=== PATIENT | female | born 1960 | race Two or more races ===

== ENCOUNTER 2020-08-31 10:06 | Inpatient (IN) | payer MEDICAID, OTHER ==
[~2020-08-31] VITALS: Ht 160 cm; Wt 84.0 kg
[2020-08-31] MEDS ORDERED: cloNIDine HCL 0.1 MG TAB PO ONE (10:15)
[2020-08-31 10:42] LABS: Basophils # (auto) 0.1 10 ^3/uL (0-0.2); Basophils % (auto) 0.9 % (0.0-2.0); Eosinophils # (auto) 0.1 10 ^3/uL (0-0.8); Eosinophils % (auto) 1.3 % (0.0-7.0); Hematocrit 38.8 % (36.0-46.0); Hemoglobin 13.2 g/dL (12.2-16.2); Lymphocytes # (auto) 2.1 10 ^3/uL (0.4-5.4); Lymphocytes % (auto) 28.3 % (10.0-50.0); Mean Corpuscular Hemoglobin 30.2 pg (28.0-32.0); Mean Corpuscular Hgb Conc. 34.1 g/dL (32.0-36.0); Mean Corpuscular Volume 88.5 fL (80.0-100.0); Monocytes # (auto) 0.7 10 ^3/uL (0-1.3); Monocytes % (auto) 9.4 % (0.0-12.0); Neutrophils # (auto) 4.4 10 ^3/uL (1.6-8.6); Neutrophils % (auto) 60.1 % (37.0-80.0); Nucleated Red Blood Cells % 0.1 %; Platelet Count (auto) 314 10^3/uL (140-450); Red Blood Cells 4.39 10^6/uL (4.0-5.20); Red Cell Distribution Width 13.8 % (11.8-14.3); White Blood Cell 7.3 10^3/uL (4.4-10.8)
[2020-08-31 10:43] LABS: Urine WBC None Seen /hpf (0 - 5)
[2020-08-31 11:02] LABS: Chloride 101 mmol/L (98-107); Potassium 3.2 mmol/L (3.5-5.1); Sodium 137 mmol/L (136-145)
[2020-08-31 11:08] LABS: Urine Bacteria NONE SEEN /hpf (None Seen); Urine Blood Negative /uL (Negative); Urine Hyaline Cast FEW /lpf (0 - 2); Urine Specific Gravity 1.005 (1.001-1.035)
[2020-08-31 11:12] LABS: Alanine Aminotransferase 23 U/L (13-56); Albumin 3.6 g/dL (3.4-5.0); Alkaline Phosphatase 65 U/L (45-117); Amylase 26 U/L (25-115); Anion Gap 6 (5-15); Aspartate Aminotransferase 21 U/L (15-37); BUN/Creatinine Ratio 11.5; Bilirubin, Total 0.5 mg/dL (0.2-1.0); Blood Urea Nitrogen 9 mg/dL (7-18); Calcium 8.8 mg/dL (8.5-10.1); Carbon Dioxide 30 mmol/L (21-32); GFR African American 98 mL/min; GFR Non-African American 81 mL/min; Glucose 153 mg/dL (74-106); Lipase 69 U/L (73-393); Magnesium 2.4 mg/dL (1.6-2.6); Total Protein 7.8 g/dL (6.4-8.2)
[2020-08-31] MEDS ORDERED: SODIUM CHLORIDE 0.9% 1,000 ML IV ONE (11:30)
[2020-08-31] MEDS ORDERED: GASTROGRAFIN 120 ML SOL ONE (12:27)
[2020-08-31] MEDS ORDERED: NITROGLYCERIN 0.4 MG SL TAB SL PRN (14:15)
[2020-08-31] MEDS: D5W/SOD CHL 0.9%/KCL 40MEQ 1,000 ML IV SCH ×2 (14:15→22:42)
[2020-08-31] MEDS ORDERED: MORPHINE SULF INJ 2 MG/ML SYRINGE 1ML IV PRN ×3 (14:15→16:00)
[2020-08-31] MEDS: POTASSIUM CHL 20MEQ/100ML 100 ML IV SCH ×2 (14:15→17:07)
[2020-08-31] MEDS ORDERED: DEXTROSE (50%) 50ML SYRG IV PRN (16:00)
[2020-08-31] MEDS ORDERED: PROMETHAZINE HCL 25 MG/ML 1ML IV PRN (16:00)
[2020-08-31] MEDS ORDERED: cefTRIAXone 1GM/50ML D5W 50 ML IV ONE (16:00)
[2020-08-31] MEDS: FAMOTIDINE (10MG/ML) 2ML VL IV SCH (16:00)
[2020-08-31] MEDS: SODIUM CHLORIDE 0.9% 1,000 ML IV SCH (16:28)
[2020-08-31 16:59] LABS: Amylase 26 U/L (25-115); Lipase 76 U/L (73-393)
[2020-08-31] MEDS: InsuLIN REG 1unit/0.01ml Soln (100units/ml) SC SCH (18:00)
[2020-08-31] MEDS: ACCU-CHEK COMFORT CURVE STRIP VI SCH (18:45)
[2020-08-31] MEDS: metroNIDAZOLE 500MG/100ML 100 ML IV SCH (21:30)
[2020-09-01] MEDS: ACCU-CHEK COMFORT CURVE STRIP VI SCH ×5 (00:28→23:10)
[2020-09-01] MEDS: InsuLIN REG 1unit/0.01ml Soln (100units/ml) SC SCH ×5 (00:30→23:11)
[2020-09-01] MEDS: SODIUM CHLORIDE 0.9% 1,000 ML IV SCH ×3 (02:21→23:10)
[2020-09-01] MEDS: FAMOTIDINE (10MG/ML) 2ML VL IV SCH ×2 (04:44→16:00)
[2020-09-01 05:32] VITALS: BP 141/94
[2020-09-01] MEDS: metroNIDAZOLE 500MG/100ML 100 ML IV SCH ×3 (06:18→23:10)
[2020-09-01] MEDS: D5W/SOD CHL 0.9%/KCL 40MEQ 1,000 ML IV SCH ×3 (06:29→23:35)
[2020-09-01] MEDS ORDERED: METF-370 PO (06:48)
[2020-09-01] MEDS ORDERED: PIO30T PO (06:51)
[2020-09-01] MEDS ORDERED: LISI30TA4 PO (06:51)
[2020-09-01] MEDS ORDERED: GLIP5TAB12 PO (06:51)
[2020-09-01 08:00] VITALS: BP 144/69
[2020-09-01] MEDS: cefTRIAXone 1GM/50ML D5W 50 ML IV SCH (09:14)
[2020-09-01 12:00] VITALS: BP 140/73
[2020-09-01 16:00] VITALS: BP 158/80
[2020-09-02 05:00] VITALS: BP 139/90
[2020-09-02] MEDS: FAMOTIDINE (10MG/ML) 2ML VL IV SCH ×2 (05:52→16:21)
[2020-09-02] MEDS: ACCU-CHEK COMFORT CURVE STRIP VI SCH ×4 (05:53→23:14)
[2020-09-02] MEDS: metroNIDAZOLE 500MG/100ML 100 ML IV SCH ×3 (05:53→23:14)
[2020-09-02] MEDS: InsuLIN REG 1unit/0.01ml Soln (100units/ml) SC SCH ×4 (05:54→23:14)
[2020-09-02 09:00] VITALS: BP 157/82
[2020-09-02] MEDS: cefTRIAXone 1GM/50ML D5W 50 ML IV SCH (10:24)
[2020-09-02] MEDS: SODIUM CHLORIDE 0.9% 1,000 ML IV SCH ×2 (12:09→18:00)
[2020-09-02] MEDS: D5W/SOD CHL 0.9%/KCL 40MEQ 1,000 ML IV SCH ×2 (12:09→23:15)
[2020-09-02 13:00] VITALS: BP 164/84
[2020-09-02 17:00] VITALS: BP 153/93
[2020-09-02 22:00] VITALS: BP 151/77
[2020-09-03] MEDS: D5W/SOD CHL 0.9%/KCL 40MEQ 1,000 ML IV SCH ×3 (00:35→17:15)
[2020-09-03 05:00] VITALS: BP 154/88
[2020-09-03] MEDS: SODIUM CHLORIDE 0.9% 1,000 ML IV SCH ×2 (06:01→14:00)
[2020-09-03] MEDS: FAMOTIDINE (10MG/ML) 2ML VL IV SCH ×2 (06:01→16:00)
[2020-09-03] MEDS: ACCU-CHEK COMFORT CURVE STRIP VI SCH ×2 (06:02→12:10)
[2020-09-03] MEDS: metroNIDAZOLE 500MG/100ML 100 ML IV SCH ×2 (06:02→14:00)
[2020-09-03] MEDS: InsuLIN REG 1unit/0.01ml Soln (100units/ml) SC SCH ×2 (06:04→12:14)
[2020-09-03 09:00] VITALS: BP 154/85
[2020-09-03] MEDS: cefTRIAXone 1GM/50ML D5W 50 ML IV SCH (09:30)
[2020-09-03 13:00] VITALS: BP 161/90
== END 2020-09-03 17:10 | disposition home or self-care (01) | DRG 247 ==
LOC: ER 10:06 → TELE 14:06 → TELE-WESTW 09-01 04:00 → TELE-EAST 09-01 17:56
PROVIDERS: ADMIT Internal Medicine; ATTEND Family Medicine
DX: K56.600 Partial intestinal obstruction, unspecified as to cause (principal); U07.1 COVID-19; E78.5 Hyperlipidemia, unspecified; I10 Essential (primary) hypertension; E66.9 Obesity, unspecified; Z68.29 Body mass index [BMI] 29.0-29.9, adult; E87.6 Hypokalemia; E11.65 Type 2 diabetes mellitus with hyperglycemia; K57.90 Diverticulosis of intestine, part unspecified, without perforation or abscess without bleeding; E78.00 Pure hypercholesterolemia, unspecified; Z82.49 Family history of ischemic heart disease and other diseases of the circulatory system; Z83.3 Family history of diabetes mellitus; Z90.710 Acquired absence of both cervix and uterus; Z79.899 Other long term (current) drug therapy
CPT/HCPCS: 36415; 71045; 74176; 74250; 80053; 81001; 82150; 82962; 83036; 83690; 83735; 84484; 85025; 87426; 93005; 96361; 96365; 96367; 96375; G0378; J0696; J1815; J3480; J3490